=== PATIENT | male | born 1980 | race African-American/Black ===

== ENCOUNTER 2019-09-19 15:42 | Emergency (ER) | payer SELFPAY ==
[2019-09-19] MEDS ORDERED: HYDROcodone/Acetaminophen 5/325 mg Tablet ONE (16:21)
[2019-09-19] MEDS ORDERED: Adacel (T-DAP) 0.5 ML SYRINGE ONE (16:21)
== END 2019-09-19 17:36 | disposition home or self-care (01) ==
LOC: ERS 15:42
DX: S01.511A Laceration without foreign body of lip, initial encounter (principal); S05.32XA Ocular laceration without prolapse or loss of intraocular tissue, left eye, initial encounter; D57.00 Hb-SS disease with crisis, unspecified; Y04.0XXA Assault by unarmed brawl or fight, initial encounter
CPT/HCPCS: 90471; 90715